=== PATIENT | male | born 1995 | race Caucasian/White ===

== ENCOUNTER 2018-08-02 16:43 | Emergency (ER) | payer SELFPAY ==
[~2018-08-02] VITALS: Ht 190.5 cm; Wt 70.3 kg
[2018-08-02 16:50] VITALS: BP 134/72
[2018-08-02] MEDS ORDERED: NAPROXEN 500 MG TABLET PO STA (16:56)
[2018-08-02] MEDS ORDERED: HYDROcodone/APAP 5/325MG 1 TAB TABLET PO ONE (17:00)
--- NOTE | 2018-08-02 17:01 | PHYS DOC ---
Past Medical History Past Medical History: No Pertinent History Past Surgical History: No Surgical History Alcohol Use: None Drug Use: None Adult General Chief Complaint Chief Complaint: HAND PROBLEM HPI HPI Patient is a 22 year old male with no significant medical history who presents with sharp 7 out of 10 right hand pain that began today at 1 PM after he repeatedly punched a car window. Patient states the window did not break. He states the pain is worse on flexion of the finger, patient denies taking anything to relieve his pain. Patient is right-handed Review of Systems Review of Systems Constitutional: Denies fever or chills [] Musculoskeletal: Reports right hand pain Integument: Denies rash or skin lesions [] Neurologic: Denies headache, focal weakness or sensory changes [] All other systems were reviewed and found to be within normal limits, except as documented in this note. Current Medications Current Medications Current Medications Medications (Trade) Dose Ordered Sig/Benigno Start Time Stop Time Status Last Admin Dose Admin Acetaminophen/ Hydrocodone Bitart (Lortab 5/325) 2 tab 1X ONCE 08/02/18 17:00 08/02/18 17:01 DC 08/02/18 17:05 2 TAB Naproxen (Naprosyn) 500 mg 1X STAT 08/02/18 16:56 08/02/18 16:57 DC 08/02/18 17:06 500 MG Allergies Allergies Allergies Coded Allergies Type Severity Reaction Last Updated Verified No Known Drug Allergies 09/29/15 No Physical Exam Physical Exam Constitutional: Well developed, well nourished, no acute distress, non-toxic appearance. [] Skin: Warm, dry, no erythema, no rash. [] Back: No tenderness, no CVA tenderness. [] Extremities: Right hand with no obvious deformity. Soft tissue swelling noted on the dorsal aspect of the hand around the fourth and fifth knuckles. Full range of motion to the right hand and fingers. Adequate radial, medial, and ulnar sensation to the right hand. +2 right radial pulse. Cap refill less than 2 seconds. +2 right radial pulse. Neurologic: Alert and oriented X 3, normal motor function, normal sensory function, no focal deficits noted. [] Psychologic: Affect normal, judgement normal, mood normal. [] Current Patient Data Vital Signs Vital Signs Date Time Temp Pulse Resp B/P (MAP) Pulse Ox O2 Delivery O2 Flow Rate FiO2 08/02/18 16:50 98.2 82 16 134/72 (92) 100 Room Air 98.2 EKG EKG [] Radiology/Procedures Radiology/Procedures []PROCEDURE: HAND RIGHT 3V Indication:ER PATIENT. TRAUMA INJURY. IMPACT TO THE RIGHT HAND. PATIENT PUNCHED A STATIONARY OBJECT PRESENTS WITH PAIN TO THE 2ND MIP JOINT; 3RD,4TH, AND 5TH MCP JOINTS. OBSERVED SWELLING AND REDNESS. NO PRIORS TECHNIQUE: 3 views of right hand COMPARISON: None FINDINGS/ impression: No acute fracture or dislocation. Soft tissue swelling seen overlying the dorsum of the hand in the region of MCP joints. Electronically signed by: Timothy Mackay DO (08/02/2018 5:13 PM) [facility] DICTATED and SIGNED BY: TIMOTHY MACKAY DO DATE: 08/02/181710 Course & Med Decision Making Course & Med Decision Making Pertinent Labs and Imaging studies reviewed. (See chart for details) This is a 22-year-old male patient who presents to the ED today with right hand pain after punching a car window. Right hand x-rays interpreted by radiologist are negative for any acute findings. Patient has right hand contusion. Ice elevation encouraged. Naproxen for pain. Follow-up with orthopedic doctor in one week. Dragon Disclaimer Dragon Disclaimer This electronic medical record was generated, in whole or in part, using a voice recognition dictation system. Departure Departure Impression: Primary Impression: Contusion of right hand Disposition: 01 HOME, SELF-CARE Condition: STABLE Referrals: NO PCP (PCP) SRINIVASAN DAVIS MD follow up in one week Patient Instructions: Contusion, [id number] Additional Instructions: You were seen for right hand contusion. Ice and elevate the extremity. Take over -the-counter pain relievers as needed. Follow-up with the orthopedic doctor in 1 -2 weeks as needed if pain continues. Problem Qualifiers Primary Impression: Contusion of right hand Encounter type: initial encounter Qualified Codes: S60.221A - Contusion of right hand, initial encounter FEMI RUSSO [employer] Aug 02, 2018 17:01
--- NOTE | 2018-08-02 17:17 | RAD ---
Indication:ER PATIENT. TRAUMA INJURY. IMPACT TO THE RIGHT HAND. PATIENT PUNCHED A STATIONARY OBJECT PRESENTS WITH PAIN TO THE 2ND MIP JOINT; 3RD,4TH, AND 5TH MCP JOINTS. OBSERVED SWELLING AND REDNESS. NO PRIORS TECHNIQUE: 3 views of right hand COMPARISON: None FINDINGS/ impression: No acute fracture or dislocation. Soft tissue swelling seen overlying the dorsum of the hand in the region of MCP joints. Electronically signed by: Timothy Alfredo DO (08/02/2018 5:13 PM) [facility]
== END 2018-08-02 17:44 | disposition home or self-care (01) ==
LOC: ER 16:43
DX: S60.221A Contusion of right hand, initial encounter (principal); W22.8XXA Striking against or struck by other objects, initial encounter; Y93.89 Activity, other specified; Y92.89 Other specified places as the place of occurrence of the external cause; Y99.8 Other external cause status
CPT/HCPCS: 73130; 99283